=== PATIENT | male | born 1955 | race Caucasian/White ===

== ENCOUNTER 2021-03-25 15:37 | Outpatient (CLI) | payer BC ==
[2021-03-25 17:20] LABS: Hemoglobin 14.9 g/dL (13.5-17.5); Mean Corpuscular HGB CONC 33.3 g/dL (32.0-36.0); Mean Corpuscular Hemoglobin 30.2 pg (27.0-33.0); Mean Corpuscular Volume 90.7 fl (81.2-95.1); Mean Platelet Volume 10.2 fl (7.4-10.4); Platelet Count 250 10x3/uL (150-450); RBC Distribution Width 12.6 % (11.5-14.5); Red Blood Cell (RBC) Count 4.93 10x6/uL (4.32-5.72); White Blood Cell (WBC) Count 7.9 10x3/uL (3.5-10.5)
[2021-03-25 17:29] LABS: Anion Gap 15 mmol/L (10-20); BUN (Urea Nitrogen) 15 mg/dL (8.4-25.7); Calc. Creatinine Clearance 0 mL/min (70-130); Calcium 9.8 mg/dL (7.8-10.44); Carbon Dioxide 23 mmol/L (23-31); Chloride 105 mmol/L (98-107); Glucose 94 mg/dL (80-115); Potassium 4.2 mmol/L (3.5-5.1); Sodium 139 mmol/L (136-145)
[2021-03-25 17:31] LABS: PTT 26.7 sec (22.0-33.0); Prothrombin Time 10.9 sec (9.5-12.1)
[2021-03-26 09:12] LABS: SARS-CoV-2 PCR by NAA Not Detected (NotDetected)
== END 2021-03-25 15:38 | disposition home or self-care (01) ==
LOC: LABBT 15:37
PROVIDERS: ATTEND Surgery
DX: Z01.818 Encounter for other preprocedural examination (principal); M48.062 Spinal stenosis, lumbar region with neurogenic claudication; M71.30 Other bursal cyst, unspecified site; Z20.822 Contact with and (suspected) exposure to COVID-19
CPT/HCPCS: 80048; 85027; 85610; 85730; 93005; 93010; U0003; U0005

== ENCOUNTER 2021-03-28 05:54 | Observation (INO) | payer BC ==
[2021-03-26 13:05] VITALS: BMI 32.3
[2021-03-28] MEDS ORDERED: ceFAZolin 2 GM/DEX 5% 100 ML BAG ONE (06:46)
[2021-03-28] MEDS ORDERED: Fentanyl 100 MCG/2 ML VIAL ONE ×3 (06:57→11:18)
[2021-03-28] MEDS ORDERED: Midazolam HCl 2 mg/2 ml Vial ONE (06:57)
[2021-03-28] MEDS ORDERED: Thrombin 5000 UNITS/5 ML VIAL ONE (07:00)
[2021-03-28] MEDS ORDERED: Ondansetron PF 4 MG/2 ML Vial ONE (08:00)
[2021-03-28] MEDS ORDERED: PROPOFOL 200 MG/20 ML VIAL ONE (08:00)
[2021-03-28] MEDS ORDERED: Ketorolac Tromethamine 30 MG/ML VIAL ONE (08:00)
[2021-03-28] MEDS ORDERED: Glycopyrrolate 0.2 MG/ML 5 ML SYRINGE ONE (08:00)
[2021-03-28] MEDS ORDERED: Dexamethasone 20 MG/5 ML VIAL ONE (08:00)
[2021-03-28] MEDS ORDERED: Rocuronium Bromide 10 MG/ML (10ML VIAL) ONE (08:00)
[2021-03-28] MEDS ORDERED: Acetaminophen/Codeine 30-300mg Tablet PO PRN (10:54)
[2021-03-28] MEDS ORDERED: traMADol HCl 50 MG TAB PO PRN (10:54)
[2021-03-28] MEDS ORDERED: Acetaminophen 325 MG TAB PO PRN (10:54)
[2021-03-28] MEDS ORDERED: tiZANidine HCl 4 MG TAB PO PRN (10:54)
[2021-03-28] MEDS ORDERED: hydrALAZINE 20 MG/ML VIAL SLOW IVP PRN (10:57)
[2021-03-28] MEDS ORDERED: HYDROmorphone 0.5 MG/0.5 ML SYRINGE ONE ×3 (11:30→11:52)
[2021-03-28] MEDS ORDERED: Morphine 4 MG/ML VIAL SLOW IVP PRN (12:47)
[2021-03-28] MEDS: HYDROcodone/Acetaminophen 7.5/325 mg Tablet PO PRN ×2 (14:46→20:34)
[2021-03-28] MEDS: Sodium Chloride 0.9% 1,000 ML IV SCH (14:47)
[2021-03-28] MEDS: ceFAZolin Sodium/D5W 2 GM in Premix Bag 1 BAG IVPB SCH (18:49)
[2021-03-28] MEDS ORDERED: Lisinopril 5 MG TAB PO SCH (21:00)
[2021-03-28] MEDS ORDERED: Simvastatin 10 MG TAB PO SCH (21:00)
[2021-03-28] MEDS ORDERED: Fenofibrate Nanocrystallized 145 MG TAB PO SCH (21:00)
[2021-03-29] MEDS: ceFAZolin Sodium/D5W 2 GM in Premix Bag 1 BAG IVPB SCH (00:23)
[2021-03-29] MEDS: Sodium Chloride 0.9% 1,000 ML IV SCH (00:34)
[2021-03-29] MEDS: HYDROcodone/Acetaminophen 7.5/325 mg Tablet PO PRN ×2 (03:24→09:33)
[2021-03-29 05:20] VITALS: TEMP 98
[2021-03-29 07:54] VITALS: BP 148/86
== END 2021-03-29 10:35 | disposition home or self-care (01) ==
LOC: SDC 05:54 → SURG A 13:00
PROVIDERS: ADMIT Surgery; ATTEND Surgery
PROC: 01NB0ZZ Release Lumbar Nerve, Open Approach (ICD-10-PCS; principal; 2021-03-28)
PROC: 0QB00ZZ Excision of Lumbar Vertebra, Open Approach (ICD-10-PCS; 2021-03-28)
DX: M71.38 Other bursal cyst, other site (principal); M48.062 Spinal stenosis, lumbar region with neurogenic claudication; M54.16 Radiculopathy, lumbar region; I10 Essential (primary) hypertension; E78.5 Hyperlipidemia, unspecified; Z86.16 Personal history of COVID-19; Z79.899 Other long term (current) drug therapy
CPT/HCPCS: 76000; 96374; 96376; G0378; J1100; J1170; J1885; J2250; J2405; J2704; J3010; J3370; J7050